=== PATIENT | female | born 1955 | race Caucasian/White ===

== ENCOUNTER → 2017-01-27 | Outpatient (CLI) | payer OTHER | LOC: MAMO 15:04 | DX: Z12.31 Encounter for screening mammogram for malignant neoplasm of breast (principal) | CPT/HCPCS: G0202 ==

== ENCOUNTER → 2020-12-08 | Outpatient (CLI) | payer OTHER, SELFPAY ==
[~2020-12-08] MED LIST: ASPIRIN EC81 MG PO; CLARITIN10 MG PO; CRESTOR5 MG PO; KLONOPIN1 MG PO; PAXIL10 MG PO; PERCODAN PO; PROTONIX40 MG PO; ZYRTEC10 MG PO
== END ==
LOC: KOH-I 11-01 16:00 → MRI 13:00
DX: M54.5 Low back pain (principal); M51.26 Other intervertebral disc displacement, lumbar region; M51.27 Other intervertebral disc displacement, lumbosacral region; M48.061 Spinal stenosis, lumbar region without neurogenic claudication; M48.07 Spinal stenosis, lumbosacral region
CPT/HCPCS: 72148

== ENCOUNTER 2021-11-21 14:43 | Observation (INO) | payer OTHER ==
[~2021-11-21] VITALS: Ht 170.2 cm; Wt 85.7 kg
[2021-11-21 16:14] LABS: HEMOGLOBIN 15.3 gm/dl (12.3-15.3); RED BLOOD COUNT 5.23 M/UL (4.00-5.10); WHITE BLOOD COUNT 10.2 K/UL (4.5-11.0)
[2021-11-21 16:49] LABS: BUN/CREATININE RATIO 19 (0-10)
[2021-11-22] MEDS ORDERED: LEVOTHYROXINE25 MC1 PO (02:43)
[2021-11-23 05:04] LABS: HEMOGLOBIN 13.3 gm/dl (12.3-15.3); RED BLOOD COUNT 4.64 M/UL (4.00-5.10); WHITE BLOOD COUNT 5.9 K/UL (4.5-11.0)
[2021-11-23] MEDS ORDERED: LEVOTHYROXINE25 MCG PO (12:04)
--- NOTE | 2021-11-23 17:55 | NUR ---
1740- NOTIFIED DR SANTACRUZ WITH PATIENTS COMPLAINTS WITH HEADACHE. NEW ORDER NOTED. WILL CONTINUE TO MONITOR.
[2021-11-24 08:08] LABS: HEMOGLOBIN 12.8 gm/dl (12.3-15.3); RED BLOOD COUNT 4.43 M/UL (4.00-5.10)
[2021-11-24 08:45] LABS: BUN/CREATININE RATIO 12 (0-10)
[2021-11-24] MEDS ORDERED: LEVOTHYROXINE25 MCG PO (10:46)
== END 2021-11-24 12:11 | disposition home or self-care (01) ==
LOC: ER1 14:43 → PROG CARE 23:38 → CDU 23:38 → PROG CARE 11-22 01:30 → MED SURG 4 11-22 22:27
PROVIDERS: Internal Medicine; Physician Assistant; ADMIT Internal Medicine
DX: R55 Syncope and collapse (principal); N17.9 Acute kidney failure, unspecified; N18.30 Chronic kidney disease, stage 3 unspecified; E78.5 Hyperlipidemia, unspecified; E03.9 Hypothyroidism, unspecified; F41.9 Anxiety disorder, unspecified; I34.1 Nonrheumatic mitral (valve) prolapse; K21.9 Gastro-esophageal reflux disease without esophagitis; G43.909 Migraine, unspecified, not intractable, without status migrainosus; Z90.49 Acquired absence of other specified parts of digestive tract; Z90.710 Acquired absence of both cervix and uterus; Z88.0 Allergy status to penicillin; Z86.73 Personal history of transient ischemic attack (TIA), and cerebral infarction without residual deficits; Z88.2 Allergy status to sulfonamides; Z79.82 Long term (current) use of aspirin; Z79.899 Other long term (current) drug therapy; Z20.822 Contact with and (suspected) exposure to COVID-19
CPT/HCPCS: ECHO; 36415; 70450; 70551; 71045; 72170; 80048; 80053; 80061; 82550; 82553; 83036; 83735; 83880; 84439; 84443; 84484; 85025; 85027; 93005; 93270; 93306; 93880; 96374; 99285; G0378; J1650; J1885; J7030; Q9967; U0002